=== PATIENT | female | born 1995 | race Caucasian/White ===

== ENCOUNTER 2016-04-24 08:27 | Emergency (ER) | payer OTHER ==
[2016-04-24 08:53] LABS: % IMMATURE GRANULYOCYTES 0.5 % (0.0-1.1); ABSOLUTE IMMATURE GRANULOCYTES 0.03 10^3/uL (0.00-0.10); ADD DIFF? NO; ADD MORPH? NO; ADD SCAN? NO; ATYPICAL LYMPHOCYTE FLAG 10 (0-99); FRAGMENT RBC FLAG 0 (0-99); HEMATOCRIT 43.6 % (38.0-47.0); HEMOGLOBIN 15.7 g/dL (12.6-16.3); LEFT SHIFT FLG 0 (0-99); LIPEMIA HEMOLYSIS FLAG 90 (0-99); MEAN CELL HEMOGLOBIN 31.8 pg (27.9-34.1); MEAN CELL VOLUME 88.3 fL (81.5-99.8); MEAN PLATELET VOLUME 8.4 fL (8.7-11.7); PLATELET CLUMPS FLAG 0 (0-99); PLATELET COUNT 257 10^3/uL (150-400); RED BLOOD CELL COUNT 4.94 10^6/uL (4.18-5.33); RED CELL DISTRIBUTION WIDTH 12.5 % (11.5-15.2)
[2016-04-24] MEDS ORDERED: HYDROmorphONE/DILAUDID 1 MG/ML SYR IVP ONE (09:00)
[2016-04-24] MEDS ORDERED: ONDANSETRON 4 MG/2 ML VIAL IVP ONE (09:00)
[2016-04-24] MEDS ORDERED: NS 1,000 ML IV ONE (09:10)
--- NOTE | 2016-04-24 09:10 | EDPHY ---
H & P Stated Complaint: rlq abd pain x 2 days Source: Patient Exam Limitations: No limitations - Personal History LMP (Females 10-55): 8-14 Days Ago Current Tetanus/Diphtheria Vaccine: Yes - Medical/Surgical History Hx Asthma: Yes Hx Chronic Respiratory Disease: No Hx Diabetes: No Hx Cardiac Disease: No Hx Renal Disease: No Hx Cirrhosis: No Hx Alcoholism: No Hx HIV/AIDS: No Hx Splenectomy or Spleen Trauma: No Other PMH: PANIC DISORDER, ASTHMA ovarian cysts - Social History Smoking Status: Never smoked Time Seen by Provider: 04/24/16 09:07 HPI/ROS: CHIEF COMPLAINT: right lower quadrant abdominal pain HISTORY OF PRESENT ILLNESS: 20-year-old female history of ovarian cyst presents emergency department with right lower quadrant abdominal pain that woke her up from her sleep at 3:00 a.m.. Patient states pain is sharp in nature , worse with movement. She was able to fall back asleep and woke up at 6:00 a.m. with continued and worsened pain. She had 1 episode of emesis due to the pain. No fevers, no nausea or diarrhea. Normal appetite. Normal bowel movements. No urinary frequency, urgency or dysuria. Patient reports she feels like her pain is deep and is unsure if it radiates to her back. REVIEW OF SYSTEMS: A comprehensive 10 point review of systems is otherwise negative aside from elements mentioned in the history of present illness. (Lauren Aguillon) - Physical Exam Exam: Physical Exam Gen: Alert and Oriented, NAD HEENT: PERRL, moist mucous membranes NECK: no meningismus CV: regular rate and regular rhythm PULM: CTAB, no wheezes ABDOMEN: soft, right lower quadrant and adnexal tenderness to palpation, negative Rovsing's, no rebound tenderness, no guarding, no peritoneal signs. BS present BACK: No CVA tenderness NEURO: Neurologically grossly intact EXTREMITIES: normal appearing SKIN: no rash or break in skin on exposed skin PSYCH: answers questions appropriately. (Lauren Aguillon) Constitutional: Initial Vital Signs Temperature (C) 36.5 C 04/24/16 08:31 Heart Rate 82 04/24/16 08:31 Respiratory Rate 16 04/24/16 08:31 Blood Pressure 113/72 04/24/16 08:31 O2 Sat (%) 96 04/24/16 08:31 O2 Delivery Mode Room Air Allergies/Adverse Reactions: Penicillins Allergy (Mild, Verified 05/15/15 15:12) Rash Home Medications: Medication Instructions Recorded traZODone [traZODone 150MG (*)] 150 mg PO 02/15/14 PARoxetine HCL [Paxil] 10 mg PO DAILY 05/15/15 Albuterol 04/24/16 Hydrocodone/APAP 5/325 [[place] 1 tab PO Q4H PRN #10 tab 04/24/16 5/325] Singulair 04/24/16 Medical Decision Making - Diagnostics Imaging: Right lower quadrant ultrasound- Impression: Nonvisualization of the appendix with no secondary evidence of appendicitis. Findings discussed with Lauren Aguillon NP 04/24/2016 at 1033. Dictated By: Cecilio Wen MD Pelvic ultrasound- Impression: 1. Complex cyst in the right ovary measuring 5.8 cm. This could represent a recurrent hemorrhagic cyst but is indeterminate. Recommend follow-up ultrasound in six-week to document resolution. 2. IUD in good position. Findings discussed with Lauren Aguillon NP, 04/24/2016 at 1033. Dictated By: Cecilio Wen MD (Lauren Aguillon) ED Course/Re-evaluation: 20-year-old healthy, nontoxic appearing female presents complaining of sudden onset right lower quadrant pain that woke her from sleep this morning. Patient reports pain feels similar to previous ovarian cyst. CBC is normal, chemistry panel is normal, patient is not , urinalysis shows no signs of infection. Ultrasound of right lower quadrant is unable to you the appendix, pelvic ultrasound shows a large complex right hemorrhagic ovarian cyst. Patient is given 15 mg of Toradol IV, she is will be discharged with a prescription for [place] and agrees to follow up with OBGYN. Patient has been given strict return precautions for worsening symptoms, fevers, new symptoms or concerns. I discussed that we were unable to see her appendix and a definitive study to rule out appendicitis would be a CT scan. The patient declined this and agrees to return for worsening symptoms. (Lauren Aguillon) Differential Diagnosis: The differential diagnosis for the patient's abdominal pain included but was not limited to ovarian cyst, pelvic inflammatory disease, ovarian torsion, urinary tract infection, ectopic , cholecystitis, and appendicitis. ( Lauren Aguillon) - Data Points Laboratory Results: Laboratory Results 04/24/16 08:25 04/24/16 08:45 04/24/16 04/24/16 04/24/16 09:50 08:45 08:25 WBC 6.57 10^3/uL (3.80-9.50) RBC 4.94 10^6/uL (4.18-5.33) Hgb 15.7 g/dL (12.6-16.3) Hct 43.6 % (38.0-47.0) MCV 88.3 fL (81.5-99.8) MCH 31.8 pg (27.9-34.1) MCHC 36.0 g/dL (32.4-36.7) RDW 12.5 % (11.5-15.2) Plt Count 257 10^3/uL (150-400) MPV 8.4 L fL (8.7-11.7) Neut % (Auto) 56.1 % (39.3-74.2) Lymph % (Auto) 29.2 % (15.0-45.0) [place] % (Auto) 8.4 % (4.5-13.0) Eos % (Auto) 4.9 % (0.6-7.6) Baso % (Auto) 0.9 % (0.3-1.7) Nucleat RBC Rel Count 0.0 % (0.0-0.2) Absolute Neuts (auto) 3.69 10^3/uL (1.70-6.50) Absolute Lymphs (auto) 1.92 10^3/uL (1.00-3.00) Absolute Monos (auto) 0.55 10^3/uL (0.30-0.80) Absolute Eos (auto) 0.32 10^3/uL (0.03-0.40) Absolute Basos (auto) 0.06 10^3/uL (0.02-0.10) Absolute Nucleated RBC 0.00 10^3/uL (0-0.01) Immature Gran % 0.5 % (0.0-1.1) Immature Gran # 0.03 10^3/uL (0.00-0.10) Sodium 142 mEq/L (134-144) Potassium 4.2 mEq/L (3.5-5.2) Chloride 108 mEq/L (97-110) Carbon Dioxide 22 mEq/l (22-31) Anion Gap 12 mEq/L (8-16) BUN 11 mg/dL (7-23) Creatinine 0.7 mg/dL (0.6-1.0) Estimated GFR > 60 Glucose 86 mg/dL (70-100) Calcium 8.8 mg/dL (8.5-10.4) Beta HCG, Qual NEGATIVE Urine Color YELLOW Urine Appearance CLEAR Urine pH 7.0 (5.0-7.5) Ur Specific [place] 1.013 (1.002-1.030) Urine Protein NEGATIVE (NEGATIVE) Urine Ketones NEGATIVE (NEGATIVE) Urine Blood 1+ H (NEGATIVE) Urine Nitrate NEGATIVE (NEGATIVE) Urine Bilirubin NEGATIVE (NEGATIVE) Urine Urobilinogen NEGATIVE EU (0.2-1.0) Ur Leukocyte Esterase TRACE H (NEGATIVE) Urine RBC 5-10 H /hpf (0-3) Urine WBC 1-3 /hpf (0-3) Ur Epithelial Cells TRACE /lpf (NONE-1+) Urine Bacteria TRACE H /hpf (NONE SEEN) Ur Culture Indicated? INDICATED H (NI) Urine Glucose NEGATIVE (NEGATIVE) Medications Given: Discontinued Medications Hydromorphone HCl (Dilaudid) 0.5 mg IVP EDNOW ONE Stop: 04/24/16 09:01 Last Admin: 04/24/16 09:09 Dose: 0.5 mg Sodium Chloride (Ns) 1,000 mls @ 0 mls/hr IV ONCE ONE PRN Reason: Wide Open Stop: 04/24/16 09:11 Last Admin: 04/24/16 09:11 Dose: 1,000 mls Ketorolac Tromethamine (Toradol) 15 mg IVP EDNOW ONE Stop: 04/24/16 11:03 Last Admin: 04/24/16 11:06 Dose: 15 mg Ondansetron HCl (Zofran) 4 mg IVP EDNOW ONE Stop: 04/24/16 09:01 Last Admin: 04/24/16 09:09 Dose: 4 mg Departure - Departure Disposition: Home, Routine, Self-Care Clinical Impression: Right ovarian cyst Condition: Good Instructions: Ovarian Cyst (ED) Additional Instructions: Take 600 mg of ibuprofen every 8 hours with food for 3-5 days, take [place] as needed for severe pain. Follow-up with OBGYN for re-evaluation and the next week. The radiologist recommends a repeat ultrasound in 6 weeks to assure resolution of cyst. Return to the emergency department for worsening symptoms, other questions or concerns. Your appendix was not visualized on ultrasound, we cannot exclude appendicitis though I think it is unlikely. If you have continued, worsening or changing pain return to the emergency department for CT scan of your abdomen to evaluate for appendicitis. Referrals: Vania Camacho MD [Medical Doctor] - As per Instructions (OBGYN on-call) Prescriptions: Hydrocodone/APAP 5/325 [[place] 5/325] 1 tab PO Q4H PRN #10 tab PRN Reason: Pain, Moderate
[2016-04-24 09:19] LABS: ANION GAP 12 mEq/L (8-16); CALCIUM 8.8 mg/dL (8.5-10.4); CARBON DIOXIDE 22 mEq/l (22-31); CHLORIDE 108 mEq/L (97-110); CREATININE 0.7 mg/dL (0.6-1.0); GLOMERULAR FILTRATION RATE > 60; GLUCOSE 86 mg/dL (70-100); POTASSIUM 4.2 mEq/L (3.5-5.2); SODIUM 142 mEq/L (134-144)
[2016-04-24 10:00] LABS: COLOR YELLOW; LEUKOCYTE ESTERASE,URINE TRACE (NEGATIVE); NITRITE,URINE NEGATIVE (NEGATIVE)
[2016-04-24 10:05] LABS: BACTERIA TRACE /hpf (NONE SEEN)
[2016-04-24 10:46] VITALS: BP 109/61; PULSE 85; RESP 18; TEMP 98.6; O2SAT 98
--- NOTE | 2016-04-24 10:46 | US ---
Appendiceal Ultrasound History: Right lower quadrant pain. Comparison: None available. Technique: Limited ultrasound of the right lower quadrant is performed. Findings: The appendix is not visualized. There is no free fluid. Impression: Nonvisualization of the appendix with no secondary evidence of appendicitis. Findings discussed with Lauren Aguillon NP 04/24/2016 at 1033.
--- NOTE | 2016-04-24 10:50 | US ---
Transabdominal and Transvaginal Pelvic Ultrasound History: 20 year old with right lower quadrant pain, history of ovarian cysts, LMP April 08, 2015, Mirena IUD. Comparison: None available. Findings: Transabdominal: The uterus measures 7.6 x 4.6 x 3.9 cm. The bladder is normal. Transvaginal: The endometrium is partially obscured by an IUD, which is in good position. The visible endometrium measures 3 mm. The left ovary measures 2.8 x 2.9 x 2.5 cm. The right ovary measures 6.1 x 5.2 x 4.1 cm. The right ovary is nearly completely replaced by a 4.6 x 3.7 x 5.8 cm complex mixed c ystic and solid cyst that could represent a hemorrhagic cyst with retracting clot. On the previous st udy, there was a 5.6 x 7.1 x 8.1 cm complex right ovarian cyst. Normal arterial blood flow is documen royce to both ovaries by Doppler ultrasound. There is a small amount of free fluid in the pelvis. Impression: 1. Complex cyst in the right ovary measuring 5.8 cm. This could represent a recurrent hemorrhagic cys t but is indeterminate. Recommend follow-up ultrasound in six-week to document resolution. 2. IUD in good position. Findings discussed with Lauren Aguillon NP, 04/24/2016 at 1033.
[2016-04-24] MEDS ORDERED: KETOROLAC 15 MG/1 ML SDV IVP ONE (11:02)
== END 2016-04-24 11:41 | disposition home or self-care (01) ==
DX: N83.201 Unspecified ovarian cyst, right side (principal); J45.909 Unspecified asthma, uncomplicated
CPT/HCPCS: 96374; J1170; J1885; J2405